=== PATIENT | female | born 1960 | race Caucasian/White ===

== ENCOUNTER 2019-11-18 20:04 | Emergency (ER) | payer SELFPAY ==
[~2019-11-18] VITALS: Ht 154.9 cm; Wt 56.7 kg
[2019-11-18 20:06] VITALS: Ht 154.9 cm; Wt 56.7 kg
[2019-11-18 21:50] VITALS: BP 130/82
== END 2019-11-18 21:50 | disposition home or self-care (01) ==
LOC: ED 20:04
DX: J45.901 Unspecified asthma with (acute) exacerbation (principal); Z88.0 Allergy status to penicillin
CPT/HCPCS: J7512